=== PATIENT | male | born 1960 ===

== ENCOUNTER 2020-12-27 13:12 | Inpatient (IN) | payer MEDICAID ==
[~2020-12-27] VITALS: Ht 167.6 cm; Wt 63.5 kg
[2020-12-27] MEDS ORDERED: POLYETHYLENE GLYCOL 17 GM PACKET PO PRN (15:00)
[2020-12-27] MEDS ORDERED: PLEASE ENTER HEIGHT AND WEIGHT MC SCH (15:00)
[2020-12-27] MEDS ORDERED: ONDANSETRON ODT 4 MG PO PRN (15:00)
[2020-12-27] MEDS ORDERED: PLEASE ENTER ALLERGIES MC SCH (15:00)
[2020-12-27 15:03] VITALS: BP 98/66
[2020-12-27 16:45] LABS: MICROSCOPIC INDICATED
[2020-12-27] MEDS: ACETAMINOPHEN 325 MG TABLET PO PRN (18:50)
[2020-12-27 19:34] VITALS: BP 100/70
[2020-12-28 07:01] LABS: CHOL/HDL RATIO 5.1; FREE T4 (FREE THYROXINE) 1.29 ng/dL (0.76-1.46); LDL/HDL RATIO 3.4 (0.5-3.0)
[2020-12-28 07:50] VITALS: BP 105/67
[2020-12-28] MEDS: ACETAMINOPHEN 325 MG TABLET PO PRN (11:26)
[2020-12-28 19:25] VITALS: BP 92/59
[2020-12-28] MEDS: CEFDINIR 300 MG CAPSULE PO SCH (20:17)
[2020-12-29 07:55] VITALS: BP 107/72
[2020-12-29] MEDS: CEFDINIR 300 MG CAPSULE PO SCH ×2 (08:31→20:38)
[2020-12-29] MEDS: SERTRALINE 50MG TABLET PO SCH (08:31)
[2020-12-29] MEDS: ACETAMINOPHEN 325 MG TABLET PO PRN (15:29)
[2020-12-29] MEDS: TOPIRAMATE 25 MG TABLET PO PRN (15:29)
[2020-12-29 20:30] VITALS: BP 104/67
[2020-12-30 07:24] VITALS: BP 93/62
[2020-12-30] MEDS: CEFDINIR 300 MG CAPSULE PO SCH (07:58)
[2020-12-30] MEDS: SERTRALINE 50MG TABLET PO SCH (07:58)
[2020-12-30] MEDS ORDERED: ERTAPENEM 1 GM in SODIUM CHLORIDE 0.9% 50 ML IV SCH (14:00)
[2020-12-30 14:11] LABS: ALANINE AMINOTRANSFERASE 31 U/L (12-78); ALBUMIN 3.5 g/dL (3.4-5.0); BASOPHILS % (AUTO) 1 % (0-1); CALCIUM 9.6 mg/dL (8.5-10.1); CHLORIDE 107 mmol/L (98-107); CREATININE 1.03 mg/dL (0.7-1.3); EOSINOPHILS % (AUTO) 2 % (1-7); LYMPHOCYTES % (AUTO) 28 % (22-44); MEAN CORPUSCULAR HEMOGLOBIN 36.9 pg (27.5-34.5); MEAN PLATELET VOLUME 7.1 fL (7.4-10.4); MONOCYTES % (AUTO) 11 % (2-9); NEUTROPHILS % (AUTO) 59 % (42-75); PLATELET COUNT 280 x10^3/uL (130-400); RED BLOOD COUNT 4.62 x10^6/uL (4.38-5.82); RED CELL DISTRIBUTION WIDTH 13.4 % (9.4-14.8)
[2020-12-30 14:13] LABS: ALKALINE PHOSPHATASE 143 U/L (45-117); ANION GAP 4 mmol/L (5-15); BILIRUBIN,TOTAL 0.6 mg/dL (0.2-1.0); TOTAL PROTEIN 7.4 g/dL (6.4-8.2)
[2020-12-30 14:44] LABS: <PLATELET ESTIMATE> ADEQUATE; <PLT MORPHOLOGY> NORMAL PLT MORPH; OVALOCYTES 1+
[2020-12-30 19:59] VITALS: BP 97/63
[2020-12-30] MEDS: SULFAMETH./TRIMETHOPRIM DS 800MG/160MG TABLET PO SCH (22:03)
[2020-12-31 07:55] VITALS: BP 91/63
[2020-12-31] MEDS: SULFAMETH./TRIMETHOPRIM DS 800MG/160MG TABLET PO SCH ×2 (08:39→20:06)
[2020-12-31] MEDS: SERTRALINE 50MG TABLET PO SCH (08:39)
[2020-12-31] MEDS: ACETAMINOPHEN 325 MG TABLET PO PRN (12:39)
[2020-12-31] MEDS: TOPIRAMATE 25 MG TABLET PO PRN (12:39)
[2020-12-31 19:45] VITALS: BP 91/57
[2021-01-01 07:32] VITALS: BP 107/71
[2021-01-01] MEDS: SERTRALINE 50MG TABLET PO SCH (07:38)
[2021-01-01] MEDS: SULFAMETH./TRIMETHOPRIM DS 800MG/160MG TABLET PO SCH ×2 (07:39→20:26)
[2021-01-01 19:49] VITALS: BP 104/58
[2021-01-02 08:01] VITALS: BP 101/69
[2021-01-02] MEDS: SERTRALINE 50MG TABLET PO SCH (09:59)
[2021-01-02] MEDS: SULFAMETH./TRIMETHOPRIM DS 800MG/160MG TABLET PO SCH ×2 (09:59→20:07)
[2021-01-02] MEDS: DOCUSATE 100 MG CAPSULE PO PRN (18:05)
[2021-01-02 19:41] VITALS: BP 115/70
[2021-01-03 08:05] VITALS: BP 94/58
[2021-01-03] MEDS: SERTRALINE 50MG TABLET PO SCH (08:58)
[2021-01-03] MEDS: SULFAMETH./TRIMETHOPRIM DS 800MG/160MG TABLET PO SCH ×2 (08:58→20:15)
[2021-01-03 19:29] VITALS: BP 94/63
[2021-01-03] MEDS: DOCUSATE 100 MG CAPSULE PO PRN (20:15)
[2021-01-04] MEDS ORDERED: SERT50TA28 PO (07:51)
[2021-01-04] MEDS ORDERED: TOPI25TA32 PO (07:51)
[2021-01-04 08:05] VITALS: BP 101/68
[2021-01-04] MEDS: SERTRALINE 50MG TABLET PO SCH (08:37)
[2021-01-04] MEDS: SULFAMETH./TRIMETHOPRIM DS 800MG/160MG TABLET PO SCH (09:00)
== END 2021-01-04 13:21 | DRG 751 ==
LOC: 3E 14:38
PROVIDERS: ADMIT Psychiatry & Neurology Psychosomatic Medicine; ATTEND Psychiatry & Neurology Psychosomatic Medicine
DX: F33.2 Major depressive disorder, recurrent severe without psychotic features (principal); N30.00 Acute cystitis without hematuria; R45.851 Suicidal ideations; F17.210 Nicotine dependence, cigarettes, uncomplicated; G31.84 Mild cognitive impairment of uncertain or unknown etiology; Z78.9 Other specified health status; Z79.899 Other long term (current) drug therapy; Z86.19 Personal history of other infectious and parasitic diseases; Z86.73 Personal history of transient ischemic attack (TIA), and cerebral infarction without residual deficits; Z87.440 Personal history of urinary (tract) infections; Z79.891 Long term (current) use of opiate analgesic; Z79.01 Long term (current) use of anticoagulants; Z90.49 Acquired absence of other specified parts of digestive tract; Z88.8 Allergy status to other drugs, medicaments and biological substances; Z91.018 Allergy to other foods
CPT/HCPCS: 36415; 80053; 80061; 81001; 84439; 84443; 85025; 87077; 87086; 87184; 87186; 93005; J1335; 92523-GN